=== PATIENT | male | born 1990 | race Caucasian/White ===

== ENCOUNTER 2018-08-24 13:49 | Emergency (ER) | payer OTHER ==
[~2018-08-24] VITALS: Ht 175.3 cm; Wt 59.0 kg
[2018-08-24 14:21] LABS: ABSOLUTE NEUTROPHILS 6.9 thou/uL (1.4-8.2); BASOPHILS 0.4 % (0.0-2.0); LYMPHOCYTES 12.2 % (24.0-44.0); MCH 30.2 pg (26.0-34.0); MCHC 34.2 g/dL (28.0-37.0); MCV 88.2 fL (80.0-100.0); MONOCYTES 6.9 % (1.0-8.0); PLATELET COUNT 224 thou/uL (150-400); POLYS 79.5 % (36.0-66.0); RBC 4.99 mil/uL (4.50-6.00); RDW 14.2 % (10.5-14.5); WBC 8.7 thou/uL (4.0-11.0)
[2018-08-24 14:25] LABS: CALCIUM 9.7 mg/dL (8.5-10.1); CREATININE 0.9 mg/dL (0.7-1.3); POTASSIUM 4.3 mmol/L (3.5-5.1)
[2018-08-24 14:32] LABS: ALBUMIN 4.3 g/dL (3.4-5.0); TOTAL BILIRUBIN 0.7 mg/dL (<0.1-1.0); TOTAL PROTEIN 7.4 g/dL (6.4-8.2)
[2018-08-24 15:48] LABS: URINE BILIRUBIN NEGATIVE (Negative); URINE BLOOD NEGATIVE (Negative); URINE CLARITY CLEAR; URINE COLOR YELLOW; URINE GLUCOSE-RANDOM* NEGATIVE (Negative); URINE KETONES NEGATIVE (Negative); URINE LEUKOCYTES-REFLEX NEGATIVE (Negative); URINE NITRITE-REFLEX NEGATIVE (Negative); URINE PROTEIN (DIPSTICK) NEGATIVE (Negative); URINE UROBILINOGEN 0.2 E.U./dl (0.2-1.0)
[2018-08-24] MEDS ORDERED: CIPRO500 M1 PO (16:12)
[2018-08-24] MEDS ORDERED: PREDNISONE 20 M20 MG PO (16:12)
[2018-08-24] MEDS ORDERED: FLAGYL500 MG PO (16:12)
[2018-08-24] MEDS ORDERED: ZOFRAN ODT4 MG PO (16:12)
[2018-08-24] MEDS ORDERED: ULTRAM 50MG TAB50 MG PO (16:12)
[2018-08-24 16:59] VITALS: BP 104/55
== END 2018-08-24 17:04 | disposition home or self-care (01) ==
LOC: ER 13:49
PROVIDERS: Physician Assistant
DX: K50.00 Crohn's disease of small intestine without complications (principal); R11.2 Nausea with vomiting, unspecified